=== PATIENT | male | born 1940 | race Caucasian/White ===

== ENCOUNTER → 2016-05-21 | Outpatient (CLI) | payer MEDICARE, BC ==
[~2016-05-21] MED LIST: ASCORBIC ACID500 MG PO; ATIVAN-DPS1 MG PO; BENICAR20 MG PO; CARTIA XT240 MG PO; COMBIVENT RESPIM4 GM IH; CORDARONE DPS200 MG PO; DELTASONE DPS1 MG PO; DOCUSATE SODIU250 MG PO; DOK250 MG PO; DULERA 100/58.8 GM IH; ELIQUIS2.5 MG PO; FLEXERIL-DPS10 MG PO; FLOMAX DPS0.4 MG PO; LANOXIN DPS0.125 MG PO; LASIX DPS40 MG PO; LEVAQUIN DPS500 MG PO; LEXAPRO10 MG PO; LOPRESSOR DPS50 MG PO; MAALOX DPS30 ML PO; MICRO-K DPS10 MEQ PO; MILK OF MAGNESI10 ML PO; MULTAQ400 MG PO; NEXIUM20 MG PO; OMNICEF DPS300 MG PO; PEPCID20 MG PO; PROSCAR DPS5 MG PO; PROVENTIL2.5 MG/3 M IH; TIAZAC180 MG PO; TYLENOL DPS325 MG PO; ZEBETA5 MG PO; ZITHROMAX500 MG PO
== END | disposition home or self-care (01) ==
LOC: RESC 04-18 10:54
DX: Z51.81 Encounter for therapeutic drug level monitoring (principal); J84.10 Pulmonary fibrosis, unspecified; Z79.899 Other long term (current) drug therapy

== ENCOUNTER 2016-05-25 11:26 | Day surgery (SDC) | payer MEDICARE, BC ==
[~2016-05-25] VITALS: Ht 177.8 cm; Wt 103.4 kg
[~2016-05-25 11:26] MED LIST changes: -ATIVAN-DPS1 MG PO; -CARTIA XT240 MG PO; -DELTASONE DPS1 MG PO; -DOCUSATE SODIU250 MG PO; -LANOXIN DPS0.125 MG PO; -MULTAQ400 MG PO; -NEXIUM20 MG PO; -OMNICEF DPS300 MG PO; -PROSCAR DPS5 MG PO; -PROVENTIL2.5 MG/3 M IH; -TYLENOL DPS325 MG PO; -ZEBETA5 MG PO
--- NOTE | 2016-06-25 15:03 | CVR ---
ADMIT: 05/25/2016 RM/LOC: SSS [facility] MR#: [id number] [address] [address] [place] [address] Cardioversion Report SEX: M AGE: 75 : 1940 DATE: 05/25/2016 INDICATION: Atrial flutter. DESCRIPTION OF PROCEDURE: Following informed consent, patient was brought to the Short Stay Surgery unit in a resting and fasting state. Pads in anterior- posterior position were positioned following adequate anesthesia and conscious sedation. A single shock of biphasic energy was delivered with the pads in anterior posterior position. No complication noted. Patient returned back to sinus rhythm. Arabella Armstrong MD/ ephraim JOB #: [id number] CC: Crow Armstrong, Attending Physician Ivan Mcduffie MD, Family Physician
[2016-07-09] MEDS ORDERED: OMNICEF DPS300 MG PO (13:05)
[2016-07-09] MEDS ORDERED: DULERA 100/58.8 GM IH (13:06)
[2016-07-09] MEDS ORDERED: ATIVAN-DPS1 MG PO (13:07)
[2016-07-09] MEDS ORDERED: LANOXIN DPS0.125 MG PO (13:08)
[2016-07-09] MEDS ORDERED: DELTASONE DPS1 MG PO (13:08)
[2016-07-09] MEDS ORDERED: ZEBETA5 MG PO (13:10)
[2016-07-09] MEDS ORDERED: TYLENOL DPS325 MG PO (13:11)
[2016-07-09] MEDS ORDERED: PROVENTIL2.5 MG/3 M IH (13:12)
[2016-10-23] MEDS ORDERED: NEXIUM20 MG PO (17:51)
[2016-10-23] MEDS ORDERED: PROSCAR DPS5 MG PO (17:52)
[2016-10-23] MEDS ORDERED: DOCUSATE SODIU250 MG PO (17:52)
[2016-10-23] MEDS ORDERED: MULTAQ400 MG PO (17:54)
[2016-10-23] MEDS ORDERED: CARTIA XT240 MG PO (17:55)
== END 2016-05-25 15:18 | disposition home or self-care (01) ==
LOC: SSS 11:26
DX: I48.92 Unspecified atrial flutter (principal); J44.9 Chronic obstructive pulmonary disease, unspecified; I10 Essential (primary) hypertension; K21.9 Gastro-esophageal reflux disease without esophagitis; Z88.0 Allergy status to penicillin; Z88.6 Allergy status to analgesic agent; Z88.8 Allergy status to other drugs, medicaments and biological substances; Z79.899 Other long term (current) drug therapy; Z90.49 Acquired absence of other specified parts of digestive tract; Z96.659 Presence of unspecified artificial knee joint

== ENCOUNTER 2016-07-03 15:43 | Inpatient (IN) | payer MEDICARE, BC ==
[~2016-07-03] VITALS: Ht 177.8 cm; Wt 103.2 kg
--- NOTE | 2016-07-04 11:20 | CO ---
ADMIT: 07/03/2016 RM/LOC: 433 [facility] MR#: [id number] 2620 [facility] [address] [place] [address] [place] [address] Consultation SEX: M AGE: 75 : 1940 DATE OF CONSULTATION: 07/03/2016 ATTENDING PHYSICIAN: Ivan Mcduffie MD CONSULTING PHYSICIAN: Lazarus Darby MD REASON FOR CONSULTATION: Atrial fibrillation. HISTORY OF PRESENT ILLNESS: Jennie is a pleasant 75-year-old male, who is well known to [facility], who has had problems with recurrent atrial fibrillation. He has atrial fibrillation dating back to 2012 during an episode of pneumonia. He then presented in January and had recurrent atrial fibrillation. He was started on anticoagulation and an antiarrhythmic therapy and underwent cardioversion on March 23, 2016. He was doing well, but then presented in May with more organized rhythm that appeared to be atrial flutter. His heart rate was in the 120s persistently. He underwent cardioversion on May 25 converting back to sinus rhythm. He said he did well until last Saturday when he started getting short of breath, rigors, and was coughing. He said he felt his heart rate where it had been in the 70s, had jumped up to the low 100s. These symptoms continued to worsen until he presented today and was diagnosed with pneumonia from Dr. Mcduffie and admitted to the hospital. He denies any chest pain, denies any orthopnea, and denies any lower extremity edema. PAST MEDICAL HISTORY: 1. History of atrial fibrillation as described above. 2. History of splenectomy for history of splenomegaly. 3. History of nephrolithiasis. 4. History of prostatitis. 5. History of West Nile virus infection. 6. History of left knee arthroplasty. 7. History of inguinal hernia repair. 8. History of cholecystectomy. 9. History of appendectomy. 10.History of hypertension. ALLERGIES: PENICILLIN, AVELOX, AND CODEINE. INTOLERANCE TO BETA-PATRIZIA SECONDARY TO RESPIRATORY DISTRESS. FAMILY HISTORY: Significant for brother, who age 56 from a horse riding accident. Mother age 94 from old age. SOCIAL HISTORY: He is a retired state manager patient, lives at home with his . He is retired. No significant alcohol or smoking history. REVIEW OF SYSTEMS: GENERAL: He does have some fever and chills. Denies any recent weight changes. HEENT: Denies any visual changes. No difficulty hearing. CARDIAC: Denies chest pain. He has had palpitations with the atrial ADMIT: 07/03/2016 RM/LOC: 433 [facility] MR#: [id number] [facility] [address] [address] [place] [address] Consultation SEX: M AGE: 75 : 1940 fibrillation. He said Saturday about 2 p.m. he went into the irregular heart rhythm. Denies any heart failure symptoms. PULMONARY: He has been coughing, was diagnosed with pneumonia. GASTROINTESTINAL: Denies any nausea, vomiting, or diarrhea. GENITOURINARY: Denies any dysuria or hematuria. He does have history of prostatitis. NEUROLOGIC: No history of TIA or strokes. PSYCHIATRIC: Denies any anxiety or depression. SKIN: Denies any rashes. HEMATOLOGIC/ONCOLOGIC: Denies any anemia or cancer. He is on Eliquis for anticoagulation. All other systems reviewed and negative. MEDICATIONS: 1. Cyclobenzaprine 10 mg twice a day. 2. Sildenafil 300 mg daily. 3. Amiodarone 200 mg daily. 4. Escitalopram 10 mg daily. 5. Combivent p.r.n. 6. Tamsulosin 0.4 mg twice a day. 7. Diltiazem 360 mg at bedtime. 8. Dulera 1 puff twice daily. 9. Eliquis 2.5 mg twice a day. PHYSICAL EXAMINATION: VITAL SIGNS: Blood pressure is 112/87, pulse is 114, respirations 18, temperature 98.5, and oxygen 93% on room air. SKIN: [place], warm and dry. EYES: Sclerae clear. No xanthelasmas. ENT: Oral mucosa is pink and moist. No jugular venous distention or carotid bruits. CHEST: He has distant breath sounds bilaterally. No wheezes or rhonchi. HEART: Irregularly irregular. He is mildly tachycardic. ABDOMEN: Soft and nontender. MUSCULOSKELETAL: Gait is normal. EXTREMITIES: EXTREMITIES: He has trace edema bilaterally. PSYCHIATRIC: Alert and oriented. Mood and affect are appropriate. DIAGNOSTIC DATA: Pending. IMPRESSION AND PLAN: ADMIT: 07/03/2016 RM/LOC: 433 [facility] MR#: [id number] [facility] [address] [address] [place] [address] [address] Consultation SEX: M AGE: 75 : 1940 1. Atrial fibrillation. He has persistent atrial fibrillation that has been recurrent. He is minimally symptomatic, and his heart rate is just over 100. At this point, we will keep him on the Eliquis and calcium channel patrizia and amiodarone. I would add digoxin to his medical regimen. He is intolerant to beta-blockers as it has caused worsening respiratory status. I am not real optimistic that we are going to able to keep him in sinus rhythm, and he has had multiple recurrent episodes here since the beginning of the year. He was scheduled for EP consultation tomorrow, which will have to reschedule. We will follow along and amend our plan as his care progresses. 2. Hypertension. 3. Pneumonia per Dr. Mcduffie. Lazarus Darby MD/ modl JOB #: [id number] CC: Ivan Mcduffie MD, Attending Physician Ivan Mcduffie MD, Family Physician
[2016-07-09] MEDS ORDERED: OMNICEF DPS300 MG PO (13:05)
[2016-07-09] MEDS ORDERED: DULERA 100/58.8 GM IH (13:06)
[2016-07-09] MEDS ORDERED: ATIVAN-DPS1 MG PO (13:07)
[2016-07-09] MEDS ORDERED: DELTASONE DPS1 MG PO (13:08)
[2016-07-09] MEDS ORDERED: LANOXIN DPS0.125 MG PO (13:08)
[2016-07-09] MEDS ORDERED: ZEBETA5 MG PO (13:10)
[2016-07-09] MEDS ORDERED: TYLENOL DPS325 MG PO (13:11)
[2016-07-09] MEDS ORDERED: PROVENTIL2.5 MG/3 M IH (13:12)
--- NOTE | 2016-07-30 10:14 | HP ---
ADMIT: 07/03/2016 RM/LOC: 433 [facility] MR#: [id number] 2620 [facility] [address] [place] [address] [place] [address] History and Physical SEX: M AGE: 75 : 1940 DATE OF SERVICE: 07/03/2016 CHIEF COMPLAINT: Four-day history of fever, fatigue, and malaise. HISTORY OF PRESENT ILLNESS: Jennie Alberts is a 75-year-old male with a history of COPD, BPH, hypertension, and atrial fibrillation who originally presented to the clinic to see Dr. Ivan Mcduffie with a 4-day history of fever, chills, fatigue, nonproductive cough, shortness of breath, and palpitations. He denies chest pain. He says he feels like he has the flu. Mr. Alberts says that within the past 3 months, he has had pneumonia and prostatitis, both of which brought by recurrence of his atrial fibrillation. During the clinic visit, chest x-ray demonstrated ground-glass infiltrates in the right lower and right middle lobes of the right lung consistent with pneumonia by their viral or atypical bacterial etiology. Due to the presence of atrial fibrillation during the visit with a heart rate of 112 beats per minute, it was decided that inpatient treatment was best due to availability of IV antibiotics and options for rate and rhythm control. PAST MEDICAL HISTORY: Includes hypertension, asthma, COPD, gastroesophageal reflux disease, urinary tract infection, prostatitis, and osteoarthritis. ALLERGIES: INCLUDE: AMOXICILLIN, AVELOX, CODEINE, DURAGESIC, FENTANYL, PROPRANOLOL, MORPHINE SULFATE, PENICILLIN, AND VALIUM. MEDICATIONS: Include: 1. Cyclobenzaprine 10 mg. 2. Cefdinir 300 mg. 3. Amiodarone 200 mg. 4. Escitalopram 10 mg. 5. Combivent 20/100 mcg. 6. Tamsulosin 0.4 mg. 7. Diltiazem 360 mg. 8. Dulera 100/5 mcg. 9. Eliquis 2.5 mg. SOCIAL HISTORY: The patient lives at home with his . He is currently retired from the workforce. FAMILY HISTORY: Paternal side includes alcoholism. Maternal side includes coronary artery disease, hypertension, asthma, and osteoarthritis. PAST SURGICAL HISTORY: Includes tonsillectomy, splenectomy, appendectomy, cholecystectomy, inguinal hernia repair, incisional hernia repair, unspecified orthopedic surgery and prostate surgery. REVIEW OF SYSTEMS: GENERAL: Positive for fever, malaise, and fatigue. HEENT: Negative for rhinorrhea or visual changes. CARDIAC: Positive for palpitations. Negative for chest pain. LUNGS: Positive for shortness of breath. Negative for chest tightness. ADMIT: 07/03/2016 RM/LOC: 433 [facility] MR#: [id number] [address] [place] [phone] JENN[place] ALBERTS [address] [place] [address] History and Physical SEX: M AGE: 75 : 1940 ABDOMEN: Negative for nausea, vomiting, diarrhea, or abdominal pain. SKIN: Negative for rash or erythema. MUSCULOSKELETAL: Positive for back pain, which the patient says is chronic. PHYSICAL EXAMINATION: GENERAL: Age-appearing male, seems fatigued as he was sitting in the chair. HEENT: Eyes, PERRLA, EOMs intact. NECK: Supple with no lymphadenopathy. CARDIAC: Rhythm is irregularly irregular with tachycardia. LUNGS: Clear to auscultation bilaterally with slightly is decreased respiratory effort. ABDOMEN: Demonstrates normal bowel sounds. It is nontender and nondistended. EXTREMITIES: There are no rashes, cyanosis, or edema noted. CLINICAL LABS: Include a white blood cell count of 9.6, hemoglobin 15.4, and a negative influenza screen for types A and B. Urinalysis demonstrated 3+ leukocyte esterase, 5-10 red blood cells, and white blood cells were too numerous to count. ASSESSMENT: Jennie Alberts is 75-year-old male with a history of chronic obstructive pulmonary disease, benign prostatic hypertrophy, hypertension, and atrial fibrillation who presents with atypical pneumonia of the right lung and urinary tract infection and atrial fibrillation with rapid ventricular response. PLAN: 1. Atrial fibrillation with rapid ventricular response. We will admit to a telemetry bed, obtain an EKG and trend cardiac enzymes q.6 hours. We will also start IV Cardizem every hour per protocol for rate control and also give IV solu-Medrol 80 mg q.8 hours. 2. Infections including pneumonia and UTI. We will start IV meropenem as dosed per pharmacy. We will also give IV azithromycin 500 mg q.24 hours. We will do a CT chest with contrast. We will draw blood cultures x2, trend procalcitonin, draw lactic acid level and also get a CBC and BMP. 3. Diet and fluids. We will start infusion of normal saline at 75 mL per hour. He will have a diet as tolerated as well as activity as tolerated. 4. He will continue home medications of cyclobenzaprine 10 mg b.i.d. or as needed, amiodarone 200 mg once per day, escitalopram 10 mg once per day, tamsulosin 0.4 mg b.i.d., Dulera 100/5 mcg one puff b.i.d., Eliquis 2.5 mg b.i.d. and we will hold his home diltiazem. Tapan Tanner, Student / Ivan Mcduffie MD / modl JOB #: [id number] CC: Ivan Mcduffie MD, Attending Physician ADMIT: 07/03/2016 RM/LOC: 433 [facility] MR#: [id number] [address] [address] JENNIE ALBERTS [address] [place] [address] History and Physical SEX: M AGE: 75 : 1940 Ivan Mcduffie MD, Family Physician
--- NOTE | 2016-08-05 13:51 | DS ---
ADMIT: 07/03/2016 RM/LOC: 433 [facility] MR#: [id number] [address] [address] [place] [address] General Discharge Summary SEX: M AGE: 75 : 1940 ADMISSION DATE: 07/03/2016 DISCHARGE DATE: 07/08/2016 SALESPERSON USED CARS: Lazarus Darby MD ADMITTING DIAGNOSIS: As per history and physical. FINAL DIAGNOSES: 1. Atrial fibrillation with rapid ventricular response/persistent atrial fibrillation. 2. Acute pneumonia. 3. Chronic obstructive pulmonary disease exacerbation due to pneumonia. 4. Sick sinus syndrome. 5. Urinary tract infection. 6. Chronic prostatitis. 7. Hypertension. 8. Benign prostatic hypertrophy. 9. Asthma. 10.Chronic gastroesophageal reflux disease/esophageal reflux. 11.Generalized osteoarthritis. 12.Status post prior splenectomy. 13.Status post previous left total knee arthroplasty. 14.Ongoing Eliquis anticoagulation. COMPLICATIONS: None. OPERATIONS: None. CLINICAL HISTORY: The patient is a 75-year-old, white male, admitted to [facility] after being seen at our office complaining of shortness of breath, cough, weakness, and elevated heart rate. The patient had onset of URI symptoms approximately 5 days prior to admission. He has a history of asthma and COPD. He does have history of SA node dysfunction with PAF. He has had 2 previous cardioversions, one and March of 2016, and most recently on 05/25/2016. Following his last cardioversion, he had remained in normal sinus rhythm. The patient notes that he has been in atrial fibrillation the last several days with tachyarrhythmia at home with heart rates to 110 to 120. When seen at our office, chest x-ray showed infiltrates in the right middle lobe and right lower lobe. In view of his pneumonia with COPD exacerbation and recurrent atrial fibrillation with rapid ventricular response, it was felt best to admit the patient. For further details of his clinical history as well as past medical history and pertinent findings on physical exam, please see dictated history and physical. Please also see Dr. Darby's dictated Cardiology consultation. LABORATORY DATA: Laboratory and x-ray summary from this hospitalization. For complete details please see cumulative laboratory summary included in the chart. Brief synopsis of lab; his initial CBC showed a white count of 8800, hemoglobin 14.8, hematocrit 43.6. At discharge, his white count was 11,300, ADMIT: 07/03/2016 RM/LOC: 433 [facility] MR#: [id number] [address] [address] JENN[place] NOGUERA [address] [place] [address] [place] [address] General Discharge Summary SEX: M AGE: 75 : 1940 hemoglobin was 13.8, hematocrit 41.4. Chemistry studies were monitored serially. On admission, his sodium was 143, potassium was low at 3.1. His BUN was 14 with a creatinine of 0.9. Blood sugar 98. On admission, his cardiac enzymes revealed his CK to be normal at 31, CK-MB was normal at 1.3. R index was elevated at 4.2. His troponin I however was normal at 0.035. Subsequent serial cardiac enzymes showed no change in his cardiac enzymes. Lactic acid on admission was 1.9. Procalcitonin was normal on admission at 0.25. Chemistry studies showed minimal change throughout the hospitalization. At discharge, his sodium was 143, potassium 4.4, BUN was 30 with a creatinine 0.8. TSH was normal during this hospitalization. Blood cultures drawn on admission showed no growth. Sputum cultures grew out normal lalo. A respiratory viral panel for viral pathogens was negative. His chest CT done on admission showed diffuse ground-glass infiltrates throughout the right upper lobe and superior portion of the right lower lobe as well as some infiltrate in the right middle lobe as well. Extensive right-sided pneumonia on his initial chest x-ray. Subsequent chest x-ray showed slow resolution of these right-sided lung opacities. He had some persistent interstitial opacities and infiltrates, which slowly resolved with improved aeration as we progressed through the hospitalization. His last chest x-ray showed significant improvement in the right lung infiltrates. He is noted to have significant chronic elevation of the right hemidiaphragm. His EKG on admission showed atrial fibrillation with rapid ventricular response. Subsequent EKG showed atrial fibrillation flutter with rate controlled with some nonspecific anterior lateral ST-T wave changes. HOSPITAL COURSE: The patient was admitted with pneumonia and acute COPD exacerbation as well as atrial fibrillation with rapid ventricular response. We started him on IV Merrem and IV Zithromax for his pneumonia. He was started on a Cardizem drip for rate control. Cardiology was consulted since they have been involved in his care. He was given IV digoxin by Cardiology which helped to slow his rate, but he did not spontaneously convert during this hospitalization. He remained in atrial fibrillation with rate controlled. Over the course of his hospital stay, his respiratory status slowly stabilized and improved. He felt much better once we got his atrial fibrillation under adequate control. He was monitored on telemetry throughout his hospitalization. We slowly tapered his steroids which had been started on because of his COPD exacerbation. His pneumonia improved, but as noted, he remained in atrial fibrillation. Ultimately, he was dismissed to home on his 6th hospital day, 07/08/2016. As noted pneumonia was resolving, respiratory status was stable, but he continued in atrial fibrillation. MEDICATIONS: At discharge, his medications included. 1. Ativan 1 mg at bedtime. 2. Amiodarone 200 mg daily. 3. Prednisone 10 mg t.i.d., for 5 days, then b.i.d. for 5 days, then one daily for 5 days a 15 day taper dose of prednisone. 4. Levaquin 500 mg one daily for 10 days. 5. TJN treatments with DuoNeb 3-4 times a day as needed. 6. Eliquis 2.5 mg b.i.d. ADMIT: 07/03/2016 RM/LOC: 433 [facility] MR#: [id number] [address]20 [facility] [address] [place] [phone] [place] [address] General Discharge Summary SEX: M AGE: 75 : 1940 7. Flomax 0.4 mg b.i.d. 8. Lanoxin 0.25 mg daily. 9. Lexapro 10 mg daily. 10.Pepcid 20 mg b.i.d. 11.Cardizem CD 360 mg at bedtime. 12.Zebeta 5 mg daily. 13.Dulera 100/5 two puffs b.i.d. 14.Flexeril 10 mg b.i.d. p.r.n., back spasms. 15.Maalox 30 mL p.r.n., indigestion. 16.Milk of magnesia 10 mL p.r.n., constipation. 17.Tylenol 325 mg 2 every 6 hours p.r.n., minor discomfort. FOLLOWUP: He is to follow up in our office in 5 to 7 days for followup on his pneumonia and COPD exacerbation. He is to follow up in with Cardiology in 1-2 weeks. He is to keep his scheduled followup with cardiac electrophysiology. It is felt that this patient will probably need cardioversion again. As noted, he will follow up in our office in approximately 4-5 days with a followup chest x- ray at that time as well as labs at that time, to include CBC, BMP, and dig level. CONDITION AT DISCHARGE: Stable and improved. PROGNOSIS: Long-term prognosis is felt to be good. Ivan Mcduffie MD/ karon JOB #: [id number] CC: Ivan Mcduffie MD, Attending Physician Ivan Mcduffie MD, Family Physician
[2016-10-23] MEDS ORDERED: NEXIUM20 MG PO (17:51)
[2016-10-23] MEDS ORDERED: DOCUSATE SODIU250 MG PO (17:52)
[2016-10-23] MEDS ORDERED: PROSCAR DPS5 MG PO (17:52)
[2016-10-23] MEDS ORDERED: MULTAQ400 MG PO (17:54)
[2016-10-23] MEDS ORDERED: CARTIA XT240 MG PO (17:55)
== END 2016-07-08 16:05 | disposition home or self-care (01) | DRG 308 ==
LOC: 4PCU 15:43
PROVIDERS: ADMIT Family Medicine
DX: I48.1 Persistent atrial fibrillation (principal); J18.9 Pneumonia, unspecified organism; I49.5 Sick sinus syndrome; J44.0 Chronic obstructive pulmonary disease with (acute) lower respiratory infection; N39.0 Urinary tract infection, site not specified; J44.1 Chronic obstructive pulmonary disease with (acute) exacerbation; N41.1 Chronic prostatitis; I10 Essential (primary) hypertension; N40.0 Benign prostatic hyperplasia without lower urinary tract symptoms; J45.909 Unspecified asthma, uncomplicated; K21.9 Gastro-esophageal reflux disease without esophagitis; M19.90 Unspecified osteoarthritis, unspecified site; Z82.49 Family history of ischemic heart disease and other diseases of the circulatory system; Z90.81 Acquired absence of spleen; Z96.652 Presence of left artificial knee joint; Z79.01 Long term (current) use of anticoagulants

== ENCOUNTER 2016-07-20 07:55 | Day surgery (SDC) | payer MEDICARE, BC ==
[~2016-07-20] VITALS: Ht 177.8 cm
[~2016-07-20 07:55] MED LIST changes: +ATIVAN-DPS1 MG PO; +DELTASONE DPS1 MG PO; +LANOXIN DPS0.125 MG PO; +OMNICEF DPS300 MG PO; +PROVENTIL2.5 MG/3 M IH; +TYLENOL DPS325 MG PO; +ZEBETA5 MG PO
--- NOTE | 2016-07-25 08:15 | CVR ---
ADMIT: 07/20/2016 RM/LOC: SSS [facility] MR#: [id number] [address] [address] [place] [address] Cardioversion Report SEX: M AGE: 75 : 1940 DATE: 07/20/2016 INDICATION: Jennie is a pleasant 75-year-old male, who has had problems with atrial fibrillation and more recently atrial flutter. We have had a difficult time controlling his heart rate. So, he was scheduled for elective cardioversion today. PROCEDURE: The patient was brought to short stay in a fasting state. After informed was obtained, the patient was given propofol by Anesthesia for sedation, and received a 50 joule biphasic shock converting him from atrial flutter to normal sinus rhythm. The patient tolerated the procedure well, and there were no complications. SUMMARY: Successful cardioversion from atrial flutter to normal sinus rhythm. RECOMMENDATIONS: We will have him follow up with EP for consultation in a couple weeks. Lazarus Darby MD/ karon JOB #: [id number] CC: Lazarus Darby MD, Attending Physician Ivan Mcduffie MD, Family Physician Ivna Mcduffie MD
[2016-10-23] MEDS ORDERED: NEXIUM20 MG PO (17:51)
[2016-10-23] MEDS ORDERED: PROSCAR DPS5 MG PO (17:52)
[2016-10-23] MEDS ORDERED: DOCUSATE SODIU250 MG PO (17:52)
[2016-10-23] MEDS ORDERED: MULTAQ400 MG PO (17:54)
[2016-10-23] MEDS ORDERED: CARTIA XT240 MG PO (17:55)
== END 2016-07-20 11:15 | disposition home or self-care (01) ==
LOC: SSS 07:55
PROC: 5A2204Z Restoration of Cardiac Rhythm, Single (ICD-10-PCS; principal; 2016-07-20)
DX: I48.91 Unspecified atrial fibrillation (principal); I48.92 Unspecified atrial flutter; I10 Essential (primary) hypertension; J45.909 Unspecified asthma, uncomplicated; Z88.0 Allergy status to penicillin; Z88.1 Allergy status to other antibiotic agents; Z88.5 Allergy status to narcotic agent; Z88.8 Allergy status to other drugs, medicaments and biological substances; J44.9 Chronic obstructive pulmonary disease, unspecified; K21.9 Gastro-esophageal reflux disease without esophagitis; Z90.49 Acquired absence of other specified parts of digestive tract; Z90.81 Acquired absence of spleen; Z79.899 Other long term (current) drug therapy; Z98.890 Other specified postprocedural states

== ENCOUNTER 2016-10-21 07:44 | Inpatient (IN) | payer MEDICARE, BC ==
[2016-10-23] MEDS ORDERED: NEXIUM20 MG PO (17:51)
[2016-10-23] MEDS ORDERED: PROSCAR DPS5 MG PO (17:52)
[2016-10-23] MEDS ORDERED: DOCUSATE SODIU250 MG PO (17:52)
[2016-10-23] MEDS ORDERED: MULTAQ400 MG PO (17:54)
[2016-10-23] MEDS ORDERED: CARTIA XT240 MG PO (17:55)
== END 2016-10-22 11:21 | disposition home or self-care (01) | DRG 309 ==
DX: I48.0 Paroxysmal atrial fibrillation (principal); I50.32 Chronic diastolic (congestive) heart failure; I11.0 Hypertensive heart disease with heart failure; I49.5 Sick sinus syndrome; I25.10 Atherosclerotic heart disease of native coronary artery without angina pectoris; J44.9 Chronic obstructive pulmonary disease, unspecified; Z23 Encounter for immunization; N41.1 Chronic prostatitis; K21.9 Gastro-esophageal reflux disease without esophagitis; M19.90 Unspecified osteoarthritis, unspecified site; F41.9 Anxiety disorder, unspecified; F32.9 Major depressive disorder, single episode, unspecified; Z90.81 Acquired absence of spleen; Z79.01 Long term (current) use of anticoagulants; Z82.49 Family history of ischemic heart disease and other diseases of the circulatory system